=== PATIENT | female | born 1955 | race African-American/Black ===

== ENCOUNTER 2019-04-05 19:52 | Emergency (ER) | payer MEDICARE ==
[~2019-04-05] VITALS: Ht 162.6 cm; Wt 64.5 kg
[2019-04-05 19:55] VITALS: Ht 162.6 cm; Wt 64.5 kg
[2019-04-05] MEDS ORDERED: COREG6.25 MG PO (19:56)
[2019-04-05] MEDS ORDERED: HYDRALAZINE HCL50 MG PO (19:57)
[2019-04-05] MEDS ORDERED: NORVASC10 MG PO (19:57)
[2019-04-05] MEDS ORDERED: [UNRECOGNIZED DRUG - REMARK] (19:58)
[2019-04-05] MEDS ORDERED: PRAVACHOL40 MG PO (19:58)
[2019-04-05] MEDS ORDERED: GLIMEPIRIDE2 MG PO (19:58)
[2019-04-05] MEDS ORDERED: KEFLEX500 MG PO (21:38)
[2019-04-05] MEDS ORDERED: TORADOL10 MG PO (21:38)
[2019-04-05 22:10] VITALS: BP 128/72
[2019-05-13 18:25] VITALS: Ht 162.6 cm; Wt 64.5 kg
== END 2019-04-05 22:10 | disposition home or self-care (01) ==
LOC: D.ER 19:52
DX: L60.0 Ingrowing nail (principal); E11.9 Type 2 diabetes mellitus without complications; I11.0 Hypertensive heart disease with heart failure; I50.9 Heart failure, unspecified

== ENCOUNTER 2019-05-13 10:43 | Outpatient (CLI) | payer MEDICARE ==
[~2019-05-13] VITALS: Ht 147.3 cm; Wt 64.5 kg
[2019-05-13] VITALS (8 sets, daily range): BP systolic 127–142; BP diastolic 72–86; Ht 147.3 cm; Wt 64.5 kg
--- NOTE | ~2019-05-13 | HEMODYNAMI ---
PATIENT:ROMAN MAE MEDICAL RECORD: [id number] : 55 [id number] AD[facility]ION DATE: 05/13/19 Generatedon:05/13/201917:48 Patient name: ROMAN MAE Patient #: [id number] SSN: : 1955 Date of study: 05/13/2019 Page: Of Hemodynamic Procedure Report Patient Data Patient Demographics Procedure consent was obtained First Name: ROMAN Gender: Female Last Name: TU : 1955 [facility] Initial: K Age: 63 year(s) Patient #: [id number] Race: Black Additional ID: [id number] Contact details [address]: [address] [place] [address] State: [place] City: [place] Zip code: [address] Past Medical History Allergies: No known allergies Admission Admission Data Admission Date: 05/13/2019 Admission Time: 10:43 Procedure Procedure Types Cath Procedure Peripheral Cath Diagnostic Procedure Abd/Extremity Extremities Left Lower Ext Arterio Procedure Description Procedure Date Procedure Date: 05/13/2019 Procedure Start Time: 14:42 Procedure Staff Name Function Edgar Levi MD Performing Physician CAL BASHIR RT Monitor Anibal Chavez RT Scrub Ketty Zuñiga RN Nurse Soila Ma RN Nurse Procedure Data Cath Procedure Fluoroscopy Diagnostic fluoroscopy Total fluoroscopy Time: time: 54.1 min 54.1 min Diagnostic fluoroscopy Total fluoroscopy dose: 173 dose: 173 mGy mGy Contrast Material Contrast Material Type Amount (ml) Isovue 300 90 Entry Location Entry Primary Successful Side Size Upsize Upsize Entry Closure Succes sful Closure Location (Fr) 1 (Fr) 2 (Fr) Remarks Device Remarks Femoral Right 5 Fr 6 Fr Mynx artery Short Cotton Candy Maker 6Fr/7Fr Diagnostic catheters Device Type Used For End Catheter Placement DIAGNOSTIC IMT 5Fr Aortic Root Catheter ([id number]) Angiography Procedure Medications Medication Administration Route Dosage Heparin Flush Bag added to field 2 bags (1000units/500ml NS) Lidocaine 1% added to field 20 Versed I.V. 1 mg Fentanyl I.V. 50 mcg Heparin Bolus I.V. 4000 units Heparin Bolus I.V. 2000 units Versed I.V. 0.5 mg Fentanyl I.V. 25 mcg Fentanyl I.V. 25 mcg Versed I.V. 0.5 mg Heparin Bolus I.V. 2000 units Versed I.V. 0.5 mg Fentanyl I.V. 25 mcg Nitroglycerin IC/IA I.A. 300 mcg Fentanyl I.V. 25 mcg Versed I.V. 0.5 mg Heparin Bolus I.V. 2000 units Fentanyl I.V. 25 mcg Versed I.V. 0.5 mg Heparin Bolus I.V. 2000 units Hemodynamics Rest Heart Rate: 103 (bpm) Snapshots Pre Cath Intra NCS Post Cath Vital Signs Time Heart Resp SPO2 etCO2 NIBP (mmHg) Rhythm Pain Sedation Rate (ipm) (%) (mmHg) Status Level (bpm) 13:45:11 101 23 30 140/80(108) NSR 0 (11) 10(A) , No pain 13:49:25 102 29 93 21.7 143/84(113) NSR 0 (11) 10(A) , No pain 13:53:41 101 22 31.5 134/79(112) NSR 0 (11) 10(A) , No pain 13:57:53 101 24 29.2 142/83(119) NSR 0 (11) 10(A) , No pain 14:02:05 98 23 30.8 140/83(109) NSR 0 (11) 10(A) , No pain 14:06:17 103 24 97 30 143/87(115) NSR 0 (11) 10(A) , No pain 14:10:31 102 22 33 143/84(114) NSR 0 (11) 10(A) , No pain 14:14:45 103 18 31.5 149/86(119) NSR 0 (11) 10(A) , No pain 14:18:59 102 22 31.5 143/82(118) NSR 0 (11) 10(A) , No pain 14:23:15 100 22 97 31.5 133/83(112) NSR 0 (11) 10(A) , No pain 14:27:27 103 19 31.5 148/84(118) NSR 0 (11) 10(A) , No pain 14:31:35 103 22 29.2 145/88(124) NSR 0 (11) 10(A) , No pain 14:35:51 105 22 30 150/89(119) NSR 0 (11) 10(A) , No pain 14:40:07 105 22 28.5 154/91(125) NSR 0 (11) 10(A) , No pain 14:44:27 101 23 11.2 136/80(111) NSR 0 (11) 8(A) , No pain 14:48:43 96 17 100 31.5 130/73(106) NSR 0 (11) 8(A) , No pain 14:52:55 97 20 100 33 131/76(105) NSR 0 (11) 8(A) , No pain 14:57:09 99 23 100 30.7 138/77(104) NSR 0 (11) 8(A) , No pain 15:01:25 97 21 100 31.5 138/74(103) NSR 0 (11) 8(A) , No pain 15:05:41 98 21 100 30.7 141/78(108) NSR 0 (11) 8(A) , No pain 15:09:55 99 22 100 30 144/84(113) NSR 0 (11) 8(A) , No pain 15:14:11 100 22 100 29.2 145/85(116) NSR 0 (11) 8(A) , No pain 15:18:25 100 22 100 29.9 144/83(109) NSR 0 (11) 8(A) , No pain 15:22:41 99 23 100 28.4 141/82(113) NSR 0 (11) 8(A) , No pain 15:26:55 102 22 100 29.2 147/89(120) NSR 0 (11) 8(A) , No pain 15:31:11 100 23 100 29.9 144/86(120) NSR 0 (11) 8(A) , No pain 15:35:26 106 23 100 29.2 146/88(121) NSR 0 (11) 8(A) , No pain 15:39:41 103 23 100 29.2 148/89(119) NSR 0 (11) 8(A) , No pain 15:43:55 103 25 100 28.4 150/92(113) NSR 0 (11) 8(A) , No pain 15:48:11 103 23 100 29.9 144/88(119) NSR 0 (11) 8(A) , No pain 15:52:27 101 20 100 32.2 144/87(114) NSR 0 (11) 8(A) , No pain 15:56:43 98 18 100 35.2 132/80(101) NSR 0 (11) 8(A) , No pain 16:00:57 98 18 100 35.9 139/79(109) NSR 0 (11) 8(A) , No pain 16:05:14 98 19 100 35.2 137/76(106) NSR 0 (11) 8(A) , No pain 16:09:27 100 19 100 33.7 137/81(112) NSR 0 (11) 10(A) , No pain 16:13:37 101 20 100 33 142/81(114) NSR 0 (11) 10(A) , No pain 16:17:49 101 21 100 30.7 140/87(114) NSR 0 (11) 10(A) , No pain 16:22:03 104 20 100 30.7 147/87(122) NSR 0 (11) 10(A) , No pain 16:26:17 106 18 100 33.7 158/95(132) NSR 0 (11) 10(A) , No pain 16:30:31 106 16 100 35.2 150/96(126) NSR 0 (11) 10(A) , No pain 16:34:45 106 15 100 36 149/94(122) NSR 0 (11) 10(A) , No pain 16:38:59 107 16 100 33.7 151/91(121) NSR 0 (11) 10(A) , No pain 16:43:15 108 16 100 33 148/99(118) NSR 0 (11) 10(A) , No pain 16:47:29 112 19 100 31.4 159/100(129) NSR 0 (11) 10(A) , No pain 16:51:45 113 19 100 33 159/101(129) NSR 0 (11) 10(A) , No pain 16:56:03 115 18 100 30.7 158/102(129) NSR 0 (11) 10(A) , No pain 17:00:19 110 18 100 0 155/96(126) NSR 0 (11) 10(A) , No pain 17:04:37 110 17 100 20.9 154/93(121) NSR 0 (11) 10(A) , No pain 17:08:53 111 18 100 32.2 154/94(124) NSR 0 (11) 10(A) , No pain 17:13:11 110 19 100 32.2 147/92(122) NSR 0 (11) 10(A) , No pain 17:17:27 110 23 100 30 154/90(125) NSR 0 (11) 10(A) , No pain 17:21:45 111 19 100 30.7 152/90(122) NSR 0 (11) 10(A) , No pain 17:26:04 110 7 100 31.4 151/89(117) NSR 0 (11) 10(A) , No pain 17:30:20 108 26 100 29.9 151/91(117) NSR 0 (11) 10(A) , No pain Medications Time Medication Route Dose Verified Delivered Reason Notes Effectiveness by by 14:36:12 Heparin Flush added 2 bags Edgar Hernández used for Bag to Gurmeet Levi procedure (1000units/500ml field MD ADAME NS) 14:36:34 Lidocaine 1% added 20ml Edgar Hernández used for to vial Gurmeet Levi procedure field MD ADAME 14:42:10 Versed I.V. 1 mg Edgar Hdez for sedation Gurmeet Zuñiga RN, MD 14:42:24 Fentanyl I.V. 50 mcg Edgar Willi for sedation Gurmeet Zuñiga RN, MD 14:47:50 Heparin Bolus I.V. 4000 Edgar Hdez for units Gurmeet Zuñiga RN anticoagulation 15:26:07 Heparin Bolus I.V. 2000 Edgar Willi for units Gurmeet Zuñiga RN anticoagulation 15:41:42 Versed I.V. 0.5 mg Edgar Willi for sedation Gurmeet Zuñiga RN, MD 15:41:53 Fentanyl I.V. 25 mcg Edgar Willi for sedation Gurmeet Zuñiga RN, MD 15:51:16 Fentanyl I.V. 25 mcg Edgar Hdez for sedation Gurmeet Zuñiga RN, MD 15:51:24 Versed I.V. 0.5 mg Edgar Hdez for sedation Gurmeet Zuñiga RN, MD 15:55:15 Heparin Bolus I.V. 2000 Edgar Hdez for units Gurmeet vazquez MD 16:05:05 Versed I.V. 0.5 mg Edgar Hdez for sedation Gurmeet Zuñiga RN, MD 16:05:15 Fentanyl I.V. 25 mcg Edgar Hdez for sedation Gurmeet Zuñiga RN, MD 16:08:20 Nitroglycerin I.A. 300mcg Edgar Hernández for IC/IA Gurmeet milian MD, MD 16:24:35 Fentanyl I.V. 25 mcg Edgar Hernández for sedation Gurmeet Levi MD, MD 16:24:46 Versed I.V. 0.5 mg Edgar Hernández for sedation Gurmeet Levi MD, MD 16:24:54 Heparin Bolus I.V. 2000 Edgar Hernández for units Gurmeet vazquez MD, MD 16:45:07 Fentanyl I.V. 25 mcg Edgar Hernández for sedation Gurmeet Levi MD, MD 16:56:38 Versed I.V. 0.5 mg Edgar Hernández for sedation Gurmeet Levi MD, MD 16:56:50 Heparin Bolus I.V. 2000 Edgar Hernández for units Gurmeet vazquez MD, MD Procedure Log Time Note 13:19:48 Anibal Chavez RT (R) (CV) sent for patient. Start room use. 13:19:50 Time tracking: Regular hours (M-F 7:00 - 5:00) 13:19:55 Plan of Care:Hemodynamics will remain stable., Cardiac rhythm will remain stable., Comfort level will be maintained., Respiratory function will remain adequate., Patient/ family verbilizes understanding of procedure., Procedure tolerated without complication., Recovers from procedure without complications.. 13:20:08 Patient received from Outpatients to IR Alert and oriented. Tansferred to table in Supine position. 13:20:11 Signed procedure consent form obtained from patient. 13:20:13 Correct patient and procedure confirmed by team. 13:20:14 ECG and BP/O2 sat monitors applied to patient. 13:20:16 - 13:20:27 H&P Date Dictated: 05/13/2019 H&P Addendum completed by physician on day of procedure. (MUST COMPLETE FOR ALL OUTPATIENTS). 13:20:29 Pre-procedure instructions explained to patient. 13:20:30 Pre-op teaching completed and patient verbalized understanding. 13:20:58 Family unavailable. 13:21:00 Patient NPO since Midnight. 13:21:38 Patient allergic to No known allergies 13:21:41 Is the patient allergic to Iodine/contrast media? No. 13:21:46 Is patient on blood thinner?No 13:21:47 Patient diabetic? Yes. 13:21:49 If diabetic: On Metformin? No 13:21:50 - 13:21:51 ----Pre-sedation anethsthesia assessment.---- 13:21:52 ----Pre-sedation anethsthesia assessment.---- 13:21:58 Previous problem with sedation/anesthesia? No ? 13:22:02 Snore? Yes 13:22:04 Sleep apnea? No 13:22:06 Deviated septum? No 13:22:08 Opens mouth fully? Yes 13:22:09 Sticks out tongue? Yes 13:22:13 Airway obstruction? No ? 13:22:19 Dentures? Yes in tight 13:22:21 - 13:23:15 IV patent on arrival in right forearm with 0.45%NaCl at KVO. 13:23:44 Right groin area was prepped with chlora-prep and draped in sterile fashion 13:23:45 Alarms reviewed by Grzegorz Rodríguez 13:23:46 Sharps counted by scrub and verified by Maddison 13:23:47 - 13:23:55 Use device set IR Diagnostic 13:23:56 Tegaderm 4 x 4 (1626W) opened to sterile field. 13:23:57 Sterile Angiographic Pack opened to sterile field. 13:23:57 Bag Decanter (2002S) opened to sterile field. 13:23:58 ACIST Manifold (23839) opened to sterile field. 13:23:59 ACIST Hand Control (45525) opened to sterile field. 13:24:01 ACIST Syringe (85109) opened to sterile field. 13:24:48 CONNOR 260 wire (F54138) opened to sterile field. 13:24:49 MICROPUNCTURE 4FR Cook (R10865) opened to sterile field. 13:24:50 BENTSON 145cm wire (M22487) opened to sterile field. 13:24:50 SHEATH 5FR [place] (JQO696) opened to sterile field. 13:24:53 A DIAGNOSTIC IMT 5Fr Catheter ([id number]) was opened to sterile field. 13:25:17 - 13:44:09 Vital chart was started 13:44:10 Baseline sample Acquired. 13:44:11 Full Disclosure recording started 13:44:14 - 14:36:12 Heparin Flush Bag (1000units/500ml NS) 2 bags added to field was administered by Edgar Levi MD; used for procedure; 14:36:14 SHEATH 6FR Destination (RSR01) opened to sterile field. 14:36:34 Lidocaine 1% 20ml vial added to field was administered by Edgar velasquez MD; used for procedure; 14:37:46 5) <15 or on dialysis Very severe, or end stage kidney failure. 14:37:58 Fire Safety Assessment: A--An alcohol-based skin anteseptic being used preoperatively., C--Open oxygen or nitrous oxide is being used. 14:38:01 Physician arrived 14:39:14 --------ALL STOP TIME OUT------ 14:39:15 Final Timeout: patient, procedure, and site verified with staff and physician. All members of the team are in agreement. 14:39:18 Right groin site verified by team. 14:40:46 Procedure started. 14:42:10 Versed 1 mg I.V. was administered by Ketty Zuñiga RN; for sedation; 14:42:18 Local anesthetic to right femoral artery with Lidocaine 1% by Edgar Levi MD.INITIAL ACCESS ONLY 14:42:24 Fentanyl 50 mcg I.V. was administered by Ketty Zuñiga RN; for sedation; 14:42:29 ROADRUNNER .035 260 glide wire (A71452) opened to sterile field. 14:47:45 Access obtained with 4Fr micropunture. 14:47:50 Heparin Bolus 4000 units I.V. was administered by Ketty Zuñiga RN; for anticoagulation; 14:47:58 A 5 Fr sheath was inserted into the Right Femoral artery 14:51:18 CXI SUPPORT .035 135 CM STR catheter (N25189) opened to sterile field. 15:03:40 CHOICE PT Extra Support J 300cm guide wire (0863902Y5) opened to steril e field. 15:04:52 TORQUE DEVICE PLASTIC .038 ( TD01) opened to sterile field. 15:05:50 CXI SUPPORT .018 150CM ANG catheter (Y94858) opened to sterile field. 15:11:19 [place] Catheter Standard (ROAVN395) opened to sterile field. 15:26:07 Heparin Bolus 2000 units I.V. was administered by Ketty Zuñiga RN; for anticoagulation; 15:26:36 COPILOT Valve Control (1312019) opened to sterile field. 15:39:45 CXI SUPPORT .018 150CM STR catheter (L44781) opened to sterile field. 15:41:11 INFLATOR BasixTOUCH (CU1677) opened to sterile field. 15:41:42 Versed 0.5 mg I.V. was administered by Ketty Zuñiga RN; for sedation; 15:41:53 Fentanyl 25 mcg I.V. was administered by Ketty Zuñiga RN; for sedation; 15:42:58 CHOICE PT Extra Support J 300cm guide wire (8608335V1) opened to steril e field. 15:45:26 Inflate balloon Inflation number: 1 A [place] Plus 2 x 8 x 150 Balloon ([id number]) was prepped and advanced across the Undefined1 , then inflated. 15:50:58 Inflate balloon Inflation number: 2 A [place] Plus 3 x 150 x 130 Balloo n ([id number]) was prepped and advanced across the Undefined1 , then inflated. 15:51:16 Fentanyl 25 mcg I.V. was administered by Ketty Zuñiga RN; for sedation; 15:51:24 Versed 0.5 mg I.V. was administered by Ketty Zuñiga RN; for sedation; 15:55:15 Heparin Bolus 2000 units I.V. was administered by Ketty Zuñiga RN; for anticoagulation; 15:58:29 Inflate balloon Inflation number: 3 A [place] Plus 3 x 210 x 150 Balloo n ([id number]) was prepped and advanced across the Undefined1 , then inflated. 16:01:30 [place] 1 Small Atherectomy catheter (H1S) opened to sterile field. 16:05:05 Versed 0.5 mg I.V. was administered by Ketty Zuñiga RN; for sedation; 16:05:15 Fentanyl 25 mcg I.V. was administered by Ketty Zuñiga RN; for sedation; 16:08:20 Nitroglycerin IC/IA 300mcg I.A. was administered by Edgar Levi MD; for vasodilation; 16:23:20 AMPLATZ Short Taper 260cm wire ([id number]) opened to sterile field. 16:24:35 Fentanyl 25 mcg I.V. was administered by Edgar Levi MD; for sedation; 16:24:46 Versed 0.5 mg I.V. was administered by Edgar Levi MD; for sedation; 16:24:54 Heparin Bolus 2000 units I.V. was administered by Edgar Levi MD; fo r anticoagulation; 16:34:36 Inflate balloon Inflation number: 1 A [place] 4 x 100 x 135 Balloon ([id number]) was prepped and advanced across the Undefined2 , then inflated. 16:39:54 EVERFLEX 6 x 60 x 120 Stent ([id number]) was deployed across Undefined1 . 16:41:17 Inflate balloon Inflation number: 4 A INPACT ADMIRAL 5 X 250 X 130 ([id number]) was prepped and advanced across the Undefined1 , then inflated. 16:44:54 Inflate balloon Inflation number: 5 A [place] 5 x 4 x 135 Balloon ([id number]) was prepped and advanced across the Undefined1 , then inflated. 16:45:07 Fentanyl 25 mcg I.V. was administered by Edgar Levi MD; for sedation; 16:55:37 CHOICE PT Extra Support J 300cm guide wire (9885649V1) opened to steril e field. 16:56:38 Versed 0.5 mg I.V. was administered by Edgar Levi MD; for sedation; 16:56:50 Heparin Bolus 2000 units I.V. was administered by Edgar Levi MD; fo r anticoagulation; 16:58:41 Inflate balloon Inflation number: 6 A [place] Plus 5 x 8 x 130 Balloon ([id number]) was prepped and advanced across the Undefined1 , then inflated. 17:15:45 Sheath upsized to a 6 Fr Short. 17:16:11 MYNX MANAGER OF INTERNAL AUDIT 6FR/7FR (AC6217) opened to sterile field. 17:16:23 Sheath removed intact; hemostasis achieved with Mynx Cotton Candy Maker 6Fr/7Fr to th e Right Femoral artery. 17:20:01 Procedure ended.(Physican Out) 17:29:24 Fluoroscopy time 54.10 minutes. 17::29 Fluoroscopy dose: 173 mGy 17::29 Flurop Dose total: 173 17:29:33 Contrast amount:Isovue 300 90ml. 17:29:35 Sharps counted by scrub and verified by R.N. 17:29:36 Insertion/operative site no bleeding no hematoma. 17:29:41 Post-op/insertion site Right Femoral artery dressed using a 4 x 4 and Tegaderm. 17:29:51 Post procedure instruction explained to patient.Patient verbalizes understanding. 17:29:55 Procedure and supply charges have been captured, reviewed, submitted an d are correct. 17:33:38 Vital chart was stopped 17:48:16 End room use (Document Last) Intervention Summary Intervention Notes Time ActionType Lesion and Equipment Used Action# Pressure Duration Attributes 15:45:26 Inflate Undefined1 [place] Plus 2 1 0 00:00 balloon x 8 x 130 Balloon ([id number]) 15:50:58 Inflate Undefined1 [place] Plus 3 2 0 00:00 balloon x 120 x 130 Balloon ([id number]) 15:58:29 Inflate Undefined1 [place] Plus 3 3 0 00:00 balloon x 2 x 130 Balloon ([id number]) 16:34:36 Inflate Undefined2 [place] 4 x 1 0 00:00 balloon 100 x 135 Balloon ([id number]) 16:39:54 Deploy self Undefined1 EVERFLEX 6 x 60 1 expanding x 120 Stent stent ([id number]) 16:41:17 Inflate Undefined1 INPACT ADMIRAL 4 0 00:00 balloon 5 X 250 X 130 ([id number]) 16:44:54 Inflate Undefined1 [place]cross 5 x 4 5 0 00:00 balloon x 135 Balloon ([id number]) 16:58:41 Inflate Undefined1 [place] Plus 5 6 0 00:00 balloon x 8 x 130 Balloon ([id number]) Device Usage Item Name Manufacture Quantity Catalog Number [facility] nt Minimal Lot# / Charge Number Stock Stock Serial# Code Tegaderm 4 x 4 3M 1 1626W 006647 152939 06589 3 5 (1626W) Sterile Cardinal 1 [id number] 347239 52879 3 5 Angiographic Health Pack Bag Decanter Microtek 1 2002S 795241 33620 74977 7 5 (2001S) Medical Inc. ACIST Manifold Acist 1 58668 131193 299774 10329 2 5 (44888) Medical Systems Inc ACIST Hand Acist 1 83817 626922 743719 37216 5 5 Control (32439) Medical Systems Inc ACIST Syringe Acist 1 97622 005407 598287 24266 6 20 (89171) Medical Systems Inc CONNOR 260 wire Cook Medical 1 P50580 423495 46523 70035 7 5 (T98091) MICROPUNCTURE Cook Medical 1 I89966 362790 189484 25660 3 5 4FR Compact Particle Acceleration (D65938) BENTSON 145cm Cook Medical 1 X95638 450105 62031 7 5 wire (F59141) SHEATH 5FR Terumo 1 DGD436 070463 372237 06039 9 5 [place] (ZKP480) DIAGNOSTIC IMT Ute 1 [id number] 080079 077322 63672 5 [id number] 5Fr Catheter Scientific (214345990) SHEATH 6FR Terumo 1 RSR01 345804 84144 26188 2 5 Destination (RSR01) ROADRUNNER .035 Cook Medical 1 B65931 322050 107739 65797 8 5 [id number] 260 glide wire (O93555) CXI SUPPORT Cook Medical 1 F19343 240279 760990 34670 4 5 2350376 .035 135 CM STR catheter (K85191) CHOICE PT Extra Ute 2 [id number] 606490 039732 01205 5 5 [id number] Support J 300cm Scientific 55248639 guide wire ([id number]) TORQUE DEVICE Ute 1 TD01 299088 385791 57260 9 5 PLASTIC .038 ( Scientific TD01) CXI SUPPORT Cook [facility] 1 W67703 625950 327777 71025 9 5 7239634 .018 150CM ANG catheter (Q99238) [place] Cross[place] Medtronic 1 VNC-SD-150 878932 749493 77052 7 5 Catheter Standard (HTDAE522) COPILOT Valve Khan 1 9446530 899710 129787 56857 3 5 Control Vascular (7704139) CXI SUPPORT Cook Medical 1 T64703 795108 957815 80625 5 5 4861013 .018 150CM STR catheter (U39192) INFLATOR Merit 1 IO6188 540776 527934 61727 4 5 BasixVoiceObjects Medical (BF8079) [place] Plus 2 Medtronic 1 [id number] 034728 714282 99944 8 5 x 8 x 130 Balloon ([id number]) [place] Plus 3 Medtronic 1 [id number] 883627 052664 36019 0 5 x 120 x 130 Balloon ([id number]) [place] Plus 3 Medtronic 1 [id number] 233681 276093 65788 5 5 x 2 x 130 Balloon ([id number]) [place] 1 Medtronic 1 H1-S 869171 3335797 19688 7 5 [id number] Small Atherectomy catheter (H1S) AMPLATZ Short Ute 1 [id number] 084798 217541 53998 3 5 [id number] Taper 260cm Scientific wire ([id number]) AMPLATZ Super Ute 1 [id number] 273496 74030 77685 8 5 stiff Straight Scientific 260cm wire ([id number]) Evercross 4 x Medtronic 1 [id number] 310744 596178 87663 0 5 100 x 135 Balloon ([id number]) EVERFLEX 6 x 60 Medtronic 1 XMT01-33-958-288 910613 808929 09422 4 5 x 120 Stent ([id number]) INPACT ADMIRAL Medtronic 1 [id number] 080752 4626902 11283 7 6 [id number] 5 X 250 X 130 ([id number]) Evercross 5 x 4 Medtronic 1 [id number] 655054 645549 12480 4 5 U844498 x 135 Balloon ([id number]) [place] Plus 5 Medtronic 1 [id number] 071353 251326 28738 8 5 x 8 x 130 Balloon ([id number]) MYNX MANAGER OF INTERNAL AUDIT Access 1 UD1349 925476 55642 1 5 6FR/7FR Closure (QZ2053) Signature Audit [place] Stage Time Signature Unsigned Intra-Procedure 05/13/2019 CAL SAHU (Анна) 5:48:34 [place] [address]
[~2019-05-13 10:43] MED LIST: COREG6.25 MG PO; GLIMEPIRIDE2 MG PO; HYDRALAZINE HCL50 MG PO; KEFLEX500 MG PO; NORVASC10 MG PO; PRAVACHOL40 MG PO; TORADOL10 MG PO; [UNRECOGNIZED DRUG - REMARK]
[2019-05-13 11:14] LABS: BASOPHILS 0.4 % (0-2); HEMATOCRIT 35.5 % (36.0-48.0); HEMOGLOBIN 11.2 g/dL (12-16); IMMATURE GRANULOCYTES 0.2 % (0-5); LYMPHOCYTES 16.8 % (15-50); MCH 29.4 pg (26.0-34.0); MCHC 31.5 g/dL (31.0-37.0); MCV 93.2 fL (80.0-100.0); MEAN PLATELET VOLUME 10.2 fL (7.4-10.4); MONOCYTES 11.4 % (2-11); NEUTROPHILS 69.2 % (40-80); PLATELET COUNT 264 10x3/uL (130-400); RBC 3.81 10x6/uL (4.00-5.40); RDW 16.7 % (11.5-14.5); WBC 9.1 10x3/uL (4.8-10.8)
[2019-05-13 11:25] LABS: APTT 31.9 SECONDS (22.8-39.4); INR 1.16 (0.85-1.17); PROTIME 14.3 SECONDS (11.6-15.0)
[2019-05-13 11:27] LABS: ANION GAP 16.7 mmol/L (8-16); CARBON DIOXIDE 24.9 mmol/L (21.0-32.0); CREATININE - SERUM 5.5 mg/dL (0.6-1.3); POTASSIUM - SERUM 3.6 mmol/L (3.5-5.1)
[2019-05-13] MEDS ORDERED: HYDROCODON-ACE1 EAC7 PO (11:30)
--- NOTE | 2019-05-13 18:16 | NUR ---
PATIENT ARRIVED HERE FROM SHE HAD AFRO TO HER LEFT LEG. SHE HAD 9 BALLOONS AND ONE STENT TOHER LEFT LEG. THE INSERTION SITE IS ALITTLE FIRM AND WE CALLED NEWTON TO COME LOOK AT THE SITE AND BE SURE THAT IT IS OK. HE SAID IT LOOKS GOOD. SHE IS LAYING FLAT FOR 4 HOURS, AND TIME STARTS AT 1800, SO SHE CAN SIT UP AT 2200. THERE IS A DRESSING OVER THE INSERTION SITE IN HER RIGHT GROIN. FREQUENT VITALS SHOW TEMP 98.2 RESP 17, PULSE 105, B/P 139/72 SHE IS RESTING QUIETLY AT THIS TIME.
--- NOTE | 2019-05-13 19:00 | NUR ---
SHIFT ASSESSMENT COMPLETE. VITAL SIGNS STABLE. NO VISUAL CUES OF DISTRESS NOTED. WILL CONTINUE TO MONITOR.
[2019-05-14 00:32] VITALS: BP 120/58
--- NOTE | 2019-05-14 07:30 | NUR ---
A/A/OX4. ASSESSMENT COMPLETED. IV PATENT TO RIGHT FOREARM WITHOUT REDNESS OR EDEMA. DRESSING RIGHT GROIN C/D/I. NO REQUESTS VOICED. WILL CONTINUE POC
[2019-05-14 08:50] VITALS: BP 102/51
[2019-05-14] MEDS ORDERED: PLAVIX75 MG PO (08:56)
[2019-05-14] MEDS ORDERED: ASPIRIN81 MG PO (08:57)
--- NOTE | 2019-05-14 09:35 | NUR ---
DISCHARGE INSTRUCTIONS REVIEWED WITH PT AND VERBALIZES UNDERSTANDING WITH NO QUESTIONS. IV DC'D WITH CATH TIP INTACT. LEFT FLOOR VIA W/C WITH ALL PERSONAL BELONGINGS AND LEFT FACILITY VIA PRIVATE VEHICLE WITH EX . KNOW SHE IS TO BE AT DIALYSIS CENTER AT 10 AM
== END 2019-05-14 09:38 | disposition home or self-care (01) ==
LOC: OBSVTIME → D.SP 10:43 → D.RAD 13:00 → D.SP 17:43 → D.M2 17:43 → OBSVTIME 17:49 → D.M2 05-14 09:38 → D.SP 05-14 09:38
PROVIDERS: Radiology Diagnostic Radiology; ATTEND Nurse Practitioner Family
DX: I70.245 Atherosclerosis of native arteries of left leg with ulceration of other part of foot (principal)